=== PATIENT | male | born 1960 | race Caucasian/White ===

== ENCOUNTER → 2024-10-08 15:50 | Outpatient (REF) | payer OTHER, SELFPAY | LOC: RAD 15:50 | PROVIDERS: ATTENDING PHYSICIAN Physician Assistant Medical; FAMILY PHYSICIAN Family Medicine | DX: N23 Unspecified renal colic (principal); R10.30 Lower abdominal pain, unspecified; Z87.442 Personal history of urinary calculi | CPT/HCPCS: 74176 ==